=== PATIENT | male | born 1990 | race Caucasian/White ===

== ENCOUNTER 2025-03-09 16:14 | Emergency (ER) | payer OTHER ==
[~2025-03-09] VITALS: Ht 172.7 cm; Wt 91.3 kg
[2025-03-09 17:00] VITALS: TEMP 98; O2SAT 99
[2025-03-09] MEDS: PERTUSS(ACELL),DIPH,TET/PF 0.5 ML SYRINGE [ADULT] IM. ONE (17:07)
[2025-03-09] MEDS: HYDROCODONE/ACETAMINOPHEN 5-325 MG TABLET PO ONE (17:08)
[2025-03-09 20:17] VITALS: BP 128/81; PULSE 94; RESP 17; O2SAT 97
[2025-03-09 20:21] LABS: PH,URINE DRUG SCREEN 5.5 (5.0-8.0)
[2025-03-09 20:28] LABS: ALCOHOL, URINE DRUG SCREEN NEGATIVE (NEGATIVE); AMPHET/METH SCREEN,URINE NEGATIVE (NEGATIVE); BARBITURATE SCREEN, URINE NEGATIVE (NEGATIVE); CANNABINOID SCREEN,URINE NEGATIVE (NEGATIVE); COCAINE SCREEN,URINE NEGATIVE (NEGATIVE); METHADONE SCREEN, URINE NEGATIVE (NEGATIVE)
[2025-03-09] MEDS: IBUPROFEN 400 MG TABLET PO ONE (20:57)
== END 2025-03-09 21:00 ==
LOC: EMS 16:17
DX: S50.02XA Contusion of left elbow, initial encounter (principal); S80.02XA Contusion of left knee, initial encounter; S80.01XA Contusion of right knee, initial encounter; Y04.0XXA Assault by unarmed brawl or fight, initial encounter; Y93.89 Activity, other specified; Y92.89 Other specified places as the place of occurrence of the external cause; Y99.8 Other external cause status
CPT/HCPCS: 73521; 80307; 90471; 90715; 99284

== ENCOUNTER 2025-03-20 12:18 | Emergency (ER) | payer OTHER ==
[~2025-03-20] VITALS: Ht 177.8 cm; Wt 80.0 kg
[2025-03-20 13:06] VITALS: BP 118/74; PULSE 76; RESP 18; TEMP 98.6; O2SAT 98
[2025-03-20] MEDS: IBUPROFEN 400 MG TABLET PO ONE (13:14)
[2025-03-20] MEDS: ACETAMINOPHEN 500 MG TABLET PO ONE (13:15)
== END 2025-03-20 17:43 ==
LOC: EMS 12:18
DX: S92.321A Displaced fracture of second metatarsal bone, right foot, initial encounter for closed fracture (principal); X58.XXXA Exposure to other specified factors, initial encounter; Y93.89 Activity, other specified; Y92.89 Other specified places as the place of occurrence of the external cause; Y99.8 Other external cause status
CPT/HCPCS: 29515; 73700; 99284; Z7502; Z7610